=== PATIENT | male | born 1975 | race Two or more races ===

== ENCOUNTER 2019-09-22 17:55 | Emergency (ER) | payer MEDICAID ==
[~2019-09-22] VITALS: Ht 167.6 cm; Wt 68.9 kg
--- NOTE | 2019-09-22 18:39 | NUR ---
Dr Llanos at the bedside for MSE.
--- NOTE | 2019-09-22 19:00 | NUR ---
received hand off and sbar fr outgoing day shift rn currently with shingle grader at bedside RA NAD monitored accordingly
--- NOTE | 2019-09-22 19:28 | NUR ---
pt cleared for discharge but refused to leave security protocol initiated
--- NOTE | 2019-09-22 19:33 | NUR ---
Patient discharged to home in stable conditon. Written and verbal after care instructions given. Patient verbalizes understanding of instructions. AMBULATORY W/ STABLE GAIT ALL BELONGINGS W/ PT
[2019-09-22 19:35] VITALS: BP 117/76
== END 2019-09-22 19:36 | disposition home or self-care (01) ==
LOC: ER 17:55
DX: M25.552 Pain in left hip (principal); M25.562 Pain in left knee; M79.605 Pain in left leg; Z59.0 Homelessness; W19.XXXA Unspecified fall, initial encounter; Y93.89 Activity, other specified; Y92.89 Other specified places as the place of occurrence of the external cause; Y99.8 Other external cause status
CPT/HCPCS: 72170; 73551; 73590; A4663